=== PATIENT | female | born 1980 | race Caucasian/White ===

== ENCOUNTER 2023-02-27 10:48 | Emergency (ER) | payer MEDICAID ==
[~2023-02-27] VITALS: Ht 162.6 cm; Wt 50.0 kg
--- NOTE | 2023-02-27 11:56 | NUR ---
GAVE PT BATH WIPES PER REQUEST.
[2023-02-27 12:03] LABS: ALANINE AMINOTRANSFERASE 25 U/L (12-78); ALBUMIN 3.8 G/DL (3.4-5.0); ALBUMIN/GLOBULIN RATIO 1.3 (1.1-1.5); ALKALINE PHOSPHATASE 54 IU/L (46-116); AMYLASE 42 U/L (25-115); ANION GAP 10 (8-16); ASPARTATE AMINO TRANSFERASE 21 U/L (10-37); BASOPHILS % (AUTO) 0.6 % (0-1); BILIRUBIN,TOTAL 0.4 MG/DL (0.1-1.0); BLOOD UREA NITROGEN 9 MG/DL (7-18); BUN/CREATININE RATIO 11.1 (10.0-20.0); CALCIUM 9.2 MG/DL (8.5-10.1); CHLORIDE 102 MMOL/L (99-107); CREATININE 0.81 MG/DL (0.40-0.90); EOSINOPHILS # (AUTO) 0.1 X10'3 (0-0.9); EOSINOPHILS % (AUTO) 2.7 % (0-6); GLUCOSE 83 MG/DL (70-104); HEMATOCRIT 34.1 % (35.0-45.0); HEMOGLOBIN 11.5 g/dl (12.0-16.0); LIPASE < 50 U/L (73-393); LYMPHOCYTES % (AUTO) 27.3 % (21-51); MEAN CORPUSCULAR HEMOGLOBIN 32.6 PG (27.0-31.0); MEAN CORPUSCULAR HGB CONC 33.7 g/dL (33.0-36.5); MEAN CORPUSCULAR VOLUME 96.5 FL (78-98); MEAN PLATELET VOLUME 7.4 FL (7.4-10.4); MONOCYTES # (AUTO) 0.4 X10'3 (0-0.9); MONOCYTES % (AUTO) 10.7 % (2-12); NEUTROPHILS # (AUTO) 2.3 X10'3 (1.8-7.7); NEUTROPHILS % (AUTO) 58.7 % (42-75); PLATELET COUNT 358 X10'3 (140-440); POTASSIUM 3.9 MMOL/L (3.5-5.1); RED BLOOD COUNT 3.53 X10'6 (4.20-5.60); RED CELL DISTRIBUTION WIDTH 13.7 % (11.5-14.5); SODIUM 138 MMOL/L (135-145); TOTAL CARBON DIOXIDE 25.8 MMOL/L (24-32); TOTAL PROTEIN 6.8 G/DL (6.4-8.2); WHITE BLOOD COUNT 3.8 X10'3 (4.5-11.0); eGFR 78 ML/MIN
[2023-02-27] MEDS ORDERED: normal saline 1000ML IV soln IVB ONE ×2 (12:15→12:20)
[2023-02-27 12:19] LABS: HCG SERUM QL NEGATIVE
[2023-02-27 13:30] LABS: ETHANOL < 0.010 GM/DL (0.0-0.010)
--- NOTE | 2023-02-27 14:21 | NUR ---
Patient requesting a epilipsy note, multiple medications and erratic behavior noted. Notified PA of patient's requests
[2023-02-27 14:57] LABS: CLARITY,URINE CLEAR (Clear); COLOR,URINE YELLOW (Yellow); GLUCOSE, URINE NEGATIVE (Neg); KETONES,URINE NEGATIVE (Neg); LEUKOCYTE ESTERASE ,URINE SMALL (Neg); NITRITES, URINE NEGATIVE (Neg); OCCULT BLOOD,URINE NEGATIVE (Neg); PROTEIN,URINE NEGATIVE (Neg); UROBILINOGEN,URINE 0.2 E.U/dL (0.2-1.0)
[2023-02-27 15:05] LABS: URINE AMPHETAMINE SCREEN POSITIVE (Neg); URINE BARBITUATE SCREEN NEGATIVE (Neg); URINE BENZODIAZEPINES SCREEN NEGATIVE (Neg); URINE CANNABINOID SCREEN POSITIVE (Neg); URINE COCAINE SCREEN NEGATIVE (Neg); URINE METHADONE SCREEN NEGATIVE (Neg); URINE OPIATE SCREEN NEGATIVE (Neg); URINE PHENCYCLIDINE SCREEN NEGATIVE (Neg)
[2023-02-27 15:14] LABS: UA COLLECTION TYPE CLN CATCH MIDSTREAM
[2023-02-27 15:21] LABS: BACTERIA,URINE FEW /HPF (Neg); MUCUS STRANDS MODERATE /LPF (Neg); RBC,URINE 0-2 /HPF (0-2); SQUAMOUS EPITHELIAL CELL,UR MANY /LPF (FEW); TRANSITIONAL EPI CELLS,URINE FEW /HPF; WBC,URINE 0-4 /HPF (0-4)
[2023-02-27 15:22] LABS: CAL OXALATE CRYSTALS 2+ /HPF (NEGATIVE)
[2023-02-27 15:24] VITALS: BP 98/64
== END 2023-02-27 16:13 | disposition home or self-care (01) ==
LOC: ER 10:48 → EDBD 10:48 → ER 16:13
DX: E86.0 Dehydration (principal); F15.10 Other stimulant abuse, uncomplicated
CPT/HCPCS: 36415; 80053; 80305; 80320; 81001; 82150; 83690; 84703; 85025; 96360; 99283; J7030